=== PATIENT | female | born 1975 | race Caucasian/White ===

== ENCOUNTER 2021-07-23 16:43 | Emergency (ER) | payer SELFPAY ==
[~2021-07-23] VITALS: Ht 167.6 cm; Wt 54.0 kg
[2021-07-23 16:58] VITALS: BP 125/90
[2021-07-23] MEDS ORDERED: NICOTINE 7MG PATCH TD ONE (18:15)
[2021-07-23] MEDS ORDERED: CHLORDIAZEPOXIDE 25MG CAPSULE PO ONE (18:15)
== END 2021-07-23 19:28 | disposition home or self-care (01) ==
LOC: ER 16:43
DX: T51.0X1A Toxic effect of ethanol, accidental (unintentional), initial encounter (principal); F32.A Depression, unspecified; Y92.520 Airport as the place of occurrence of the external cause
CPT/HCPCS: 99283